=== PATIENT | male | born 1960 | race Caucasian/White ===

== ENCOUNTER 2019-12-27 07:58 | Day surgery (SDC) | payer OTHER ==
[~2019-12-27] VITALS: Ht 170.2 cm; Wt 53.5 kg
[~2019-12-27 07:58] MED LIST: ASPI81CH33 PO; CARV12.5 PO; CODE30TA PO; COZA1TAB PO; CYCL-707 PO; D-40TAB2 PO; LIDO5CRE6 EXT; MULTCAP PO; SIMV40TA20 PO
[2019-12-27] MEDS ORDERED: LIDOCAINE 2% 100MG/5ML SDV (FOR ANES.) As Ordered ONE (09:36)
[2019-12-27] MEDS ORDERED: propofoL 500 MG/50 ML VIAL As Ordered ONE (09:36)
[2019-12-27 10:15] VITALS: BP 134/86
--- NOTE | 2020-02-11 14:20 | ROOR ---
Patient Name: Maxx Allan Procedure Date: 12/27/2019 8:55 AM Date of : 1960 Age: 59 Room: [facility] Gender: Male Note Status: Security Screener Override Procedure: Total Colonoscopy to Cecum + Cold Snare Polypectomy Indications: Screening for colorectal malignant neoplasm Providers: uSraj Echols MD Referring MD: Jairo Arias MD Requesting Provider: Medicines: Monitored Anesthesia Care Complications: No immediate complications. Procedure: Pre-Anesthesia Assessment: - The heart rate, respiratory rate, oxygen saturations, blood pressure, adequacy of pulmonary ventilation, and response to care were monitored throughout the procedure. The Colonoscope was introduced through the anus and advanced to the cecum, identified by appendiceal orifice and ileocecal valve. The colonoscopy was performed without difficulty. The patient tolerated the procedure well. The quality of the bowel preparation was excellent. Findings: The perianal and digital rectal examinations were normal. Non-bleeding internal hemorrhoids were found during retroflexion. The hemorrhoids were small and Grade I (internal hemorrhoids that do not prolapse). Multiple small and large-mouthed diverticula were found in the recto-sigmoid colon, sigmoid colon and descending colon. A small polyp was found in the rectum. The polyp was sessile. The polyp was removed with a cold snare. Resection was complete, but the polyp tissue was not retrieved. The exam was otherwise without abnormality on direct and retroflexion views. Impression: - Non-bleeding internal hemorrhoids. - Diverticulosis in the recto-sigmoid colon, in the sigmoid colon and in the descending colon. - One small polyp in the rectum, removed with a cold snare. Complete resection. Polyp tissue not retrieved. - The examination was otherwise normal on direct and retroflexion views. - The exam was otherwise normal to the cecum. Recommendation: - Patient has a contact number available for emergencies. The signs and symptoms of potential delayed complications were discussed with the patient. Return to normal activities tomorrow. Written discharge instructions were provided to the patient. - High fiber diet. - Discharge patient to home. - Continue present medications. - Repeat colonoscopy in 10 years for screening purposes. - Return to referring physician. - The findings and recommendations were discussed with the patient. Suraj Echols MD Suraj Echols MD 12/27/2019 9:54:56 AM Number of Addenda: 0 Note Initiated On: 12/27/2019 8:55 AM Estimated Blood Loss: Estimated blood loss: none.
== END 2019-12-27 10:27 | disposition home or self-care (01) ==
LOC: M OPP 07:58
PROVIDERS: ATTEND Internal Medicine Gastroenterology
DX: Z12.11 Encounter for screening for malignant neoplasm of colon (principal); K64.0 First degree hemorrhoids; K62.1 Rectal polyp; K57.30 Diverticulosis of large intestine without perforation or abscess without bleeding; I50.9 Heart failure, unspecified; F17.210 Nicotine dependence, cigarettes, uncomplicated; Z79.82 Long term (current) use of aspirin; Z79.899 Other long term (current) drug therapy; Z79.891 Long term (current) use of opiate analgesic; Z88.8 Allergy status to other drugs, medicaments and biological substances; Z95.0 Presence of cardiac pacemaker

== ENCOUNTER → 2020-07-27 | Outpatient (CLI) | payer OTHER ==
--- NOTE | 2020-07-27 13:20 | REP ---
INDICATION: ATHEROSCLEROSIS COMPARISON: 09/22/2019. TECHNIQUE: Real time arce scale and Duplex Doppler evaluation of the bilateral lower extremity arterial vasculature using linear high frequency transducer. FINDINGS: Arce scale and duplex doppler images demonstrate moderate diffuse plaquing bilaterally, left more so than right. The left common iliac and external iliac arteries are occluded. The left inferior epigastric artery revascularizes the left common femoral artery. Diffuse monophasic waveforms are seen throughout the left lower extremity. Right lower extremity demonstrates diffuse biphasic and triphasic waveforms. There is stenosis of the right profunda approximately 2.4-1. There is also stenosis of the proximal to mid right SFA approximately 2-1. OLIVIA right 1.0 and left 0.64. Peak systolic velocities (cm/sec) Common femoral artery: Right 74; Left 46 Profunda femoris: Right 175; Left 20 SFA (proximal): Right 93; Left 43 SFA (mid): Right 194; Left 44 SFA (distal): Right 91; Left 37 Popliteal artery: Right 81; Left 28 SOULEYMANE (prox.): Right 59; Left 21 Tibioperoneal trunk: Right 68; Left 24 [employer]IC (prox.): Right 77; Left 29 [employer] MECH[employer]IC (distal): Right 61; Left 26 SOULEYMANE (distal): Right 29; Left 8 IMPRESSION: Moderate diffuse plaquing left greater than right. 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 There is reconstitution of left common femoral artery via left inferior epigastric artery. Mild stenosis right profunda and mid right SFA. <Electronically signed by Bakari Arce > 07/27/20 [id number]
== END ==
LOC: M RAD 11:11
PROVIDERS: ATTEND Physician Assistant
DX: I70.213 Atherosclerosis of native arteries of extremities with intermittent claudication, bilateral legs (principal)

== ENCOUNTER 2023-07-17 08:17 | Day surgery (SDC) | payer OTHER ==
[~2023-07-17] VITALS: Ht 170.2 cm; Wt 56.0 kg
[~2023-07-17 08:17] MED LIST changes: -COZA1TAB PO; +LOSA-527 PO; +MIDAZOLAM INJ 2MG/2ML VIAL As Ordered ONE; +fentaNYL 100 MCG/2 ML INJECTION As Ordered ONE
[2023-07-17] MEDS: OFLOXACIN 0.3 % (OCUFLOX) OPTH SOL 5ML OD ONE (08:45)
[2023-07-17] MEDS: LIDOCAINE 3.5 % 1ML OPHTH TOPICAL GEL OU ONE (09:02)
[2023-07-17] MEDS: ATROPINE SULFATE 1% OPHTH SOLN 2ML BTL OD SCH (09:03)
[2023-07-17] MEDS: TROPICAMIDE 1% OPHTH SOLN 15ML OD SCH (09:03)
[2023-07-17] MEDS: PHENYLEPHRINE 10% OPHTH SOL 5ML OD PRN (09:03)
[2023-07-17] MEDS: PHENYLEPHRINE 2.5% OPHTH SOL 2ML OD SCH (09:03)
[2023-07-17] MEDS: BSS IRRIG/VANCO(10MG)/TOBRA(5MG)/EPINEPH(1:1000-0.5CC)500ML BAG-ORONLY As Ordered ONE (09:32)
[2023-07-17] MEDS: LIDOCAINE 1% SDV 5ML VIAL As Ordered ONE (09:32)
[2023-07-17] MEDS: CEFUROXIME 1MG/0.1ML INTRACAMERAL INJ As Ordered ONE (09:32)
[2023-07-17] MEDS: VISCOAT 40-30MG/ML 0.5ML SYRINGE As Ordered ONE (09:40)
[2023-07-17] MEDS: DUOVISC (0.50ML VISCOAT/0.85ML PROVISC) OPHTH KIT As Ordered ONE (09:40)
[2023-07-17 09:57] VITALS: BP 133/77; TEMP 98; O2SAT 96
== END 2023-07-17 10:12 | disposition home or self-care (01) ==
LOC: M SDC 08:17
PROVIDERS: ATTEND Ophthalmology
DX: H25.11 Age-related nuclear cataract, right eye (principal); H40.1111 Primary open-angle glaucoma, right eye, mild stage; I25.10 Atherosclerotic heart disease of native coronary artery without angina pectoris; Z95.0 Presence of cardiac pacemaker; Z79.899 Other long term (current) drug therapy; F17.210 Nicotine dependence, cigarettes, uncomplicated
CPT/HCPCS: 66991; C1783; J0697; J2250; J3010; V2632

== ENCOUNTER 2023-07-24 07:42 | Day surgery (SDC) | payer OTHER ==
[~2023-07-24] VITALS: Ht 170.2 cm; Wt 56.1 kg
[~2023-07-24 07:42] MED LIST changes: +BSS with VANC/TOB/EPI for EYE CASES IR ONE; +CYCLOPENTOLATE 1% OPHTH SOLN 2ML BTL OS SCH; +PHENYLEPHRINE 10% OPHTH SOL 5ML OS PRN
[2023-07-24] MEDS: PHENYLEPHRINE 2.5% OPHTH SOL 2ML OS SCH (08:24)
[2023-07-24] MEDS: OFLOXACIN 0.3 % (OCUFLOX) OPTH SOL 5ML OS ONE (08:24)
[2023-07-24] MEDS: ATROPINE SULFATE 1% OPHTH SOLN 2ML BTL OS SCH (08:24)
[2023-07-24] MEDS: TROPICAMIDE 1% OPHTH SOLN 15ML OS SCH (08:25)
[2023-07-24] MEDS: LIDOCAINE 3.5 % 1ML OPHTH TOPICAL GEL OU ONE (08:25)
[2023-07-24] MEDS: LIDOCAINE 1% SDV 5ML VIAL As Ordered ONE (09:28)
[2023-07-24] MEDS: CEFUROXIME 1MG/0.1ML INTRACAMERAL INJ As Ordered ONE (09:28)
[2023-07-24] MEDS: BSS IRRIG/VANCO(10MG)/TOBRA(5MG)/EPINEPH(1:1000-0.5CC)500ML BAG-ORONLY As Ordered ONE (09:28)
[2023-07-24 09:40] VITALS: BP 144/71; TEMP 97.4; O2SAT 100
== END 2023-07-24 09:55 | disposition home or self-care (01) ==
LOC: M SDC 07:42
PROVIDERS: ATTEND Ophthalmology
DX: H25.12 Age-related nuclear cataract, left eye (principal); H40.9 Unspecified glaucoma; I10 Essential (primary) hypertension; I25.10 Atherosclerotic heart disease of native coronary artery without angina pectoris; E78.00 Pure hypercholesterolemia, unspecified; Z79.899 Other long term (current) drug therapy; Z79.82 Long term (current) use of aspirin; F17.210 Nicotine dependence, cigarettes, uncomplicated; Z95.0 Presence of cardiac pacemaker
CPT/HCPCS: 66991; C1783; J0697; J2250; J3010; V2632